=== PATIENT | female | born 1990 | race Caucasian/White ===

== ENCOUNTER → 2019-09-18 14:22 | Outpatient (BNVA) | payer OTHER, SELFPAY | PROVIDERS: Family Provider Family Medicine; Visit Provider Nurse Practitioner Women's Health | DX: Z01.419 Encounter for gynecological examination (general) (routine) without abnormal findings (principal); Z11.3 Encounter for screening for infections with a predominantly sexual mode of transmission; R53.83 Other fatigue; F41.9 Anxiety disorder, unspecified; F32.9 Major depressive disorder, single episode, unspecified | CPT/HCPCS: 84443; 87491; 87591; 87661 ==

== ENCOUNTER → 2020-10-05 09:00 | Outpatient (BNVA) | payer OTHER, SELFPAY | PROVIDERS: Family Provider Family Medicine; Visit Provider Nurse Practitioner Women's Health | DX: Z01.419 Encounter for gynecological examination (general) (routine) without abnormal findings (principal); Z11.3 Encounter for screening for infections with a predominantly sexual mode of transmission | CPT/HCPCS: 87491; 87591; 87661; 88175 ==

== ENCOUNTER → 2020-12-01 12:56 | Outpatient (BNVA) | payer OTHER, SELFPAY | PROVIDERS: Family Provider Family Medicine; Visit Provider Obstetrics & Gynecology | DX: R87.610 Atypical squamous cells of undetermined significance on cytologic smear of cervix (ASC-US) (principal); R87.810 Cervical high risk human papillomavirus (HPV) DNA test positive | CPT/HCPCS: 81025; 88305 ==

== ENCOUNTER → 2021-04-27 16:16 | Outpatient (BNVA) | payer OTHER, SELFPAY | PROVIDERS: Family Provider Family Medicine; Visit Provider Nurse Practitioner Family | DX: Z20.822 Contact with and (suspected) exposure to COVID-19 (principal) | CPT/HCPCS: 87635 ==

== ENCOUNTER → 2022-04-25 15:15 | Outpatient (BNVA) | payer OTHER, SELFPAY | PROVIDERS: Family Provider Family Medicine; PCP Family Medicine; Visit Provider Nurse Practitioner Women's Health | DX: R87.610 Atypical squamous cells of undetermined significance on cytologic smear of cervix (ASC-US) (principal); R87.810 Cervical high risk human papillomavirus (HPV) DNA test positive; N89.8 Other specified noninflammatory disorders of vagina; N76.0 Acute vaginitis; Z01.419 Encounter for gynecological examination (general) (routine) without abnormal findings; B96.89 Other specified bacterial agents as the cause of diseases classified elsewhere; Z30.431 Encounter for routine checking of intrauterine contraceptive device | CPT/HCPCS: 87624 ==

== ENCOUNTER 2022-12-04 08:41 | Outpatient (CLI) | payer OTHER, SELFPAY | END 2022-12-04 08:42 | disposition home or self-care (01) | PROVIDERS: PCP Family Medicine; Visit Provider Family Medicine | DX: Z01.89 Encounter for other specified special examinations (principal) | CPT/HCPCS: 36415 ==

== ENCOUNTER → 2023-08-08 09:13 | Outpatient (BNVA) | payer OTHER, SELFPAY | PROVIDERS: Visit Provider Nurse Practitioner Women's Health | DX: Z12.4 Encounter for screening for malignant neoplasm of cervix (principal); Z01.419 Encounter for gynecological examination (general) (routine) without abnormal findings; R87.610 Atypical squamous cells of undetermined significance on cytologic smear of cervix (ASC-US); R87.810 Cervical high risk human papillomavirus (HPV) DNA test positive | CPT/HCPCS: 87624 ==

== ENCOUNTER 2024-07-16 12:01 | Outpatient (CLI) | payer OTHER, SELFPAY ==
[2024-07-17 21:55] LABS: Chlamydia Trachomatis RNA TMA NOT DETECTED (NOT DETECTED); Neisseria Gonorrhoeae RNA, TMA NOT DETECTED (NOT DETECTED)
== END 2024-07-16 12:02 | disposition home or self-care (01) ==
LOC: LAB 12:04
DX: Z11.8 Encounter for screening for other infectious and parasitic diseases (principal)
CPT/HCPCS: 87491; 87591

== ENCOUNTER 2024-10-26 10:42 | Outpatient (CLI) | payer OTHER, SELFPAY ==
[2024-10-27 15:34] LABS: Cytomegalovirus Antibody (IGM) <30.00 AU/mL
== END 2024-10-26 10:43 | disposition home or self-care (01) ==
LOC: LAB 10:43
PROVIDERS: PCP Family Medicine; Visit Provider Student in an Organized Health Care Education/Training Program
DX: R76.8 Other specified abnormal immunological findings in serum (principal)
CPT/HCPCS: 36415

== ENCOUNTER 2024-11-17 08:53 | Outpatient (CLI) | payer OTHER, SELFPAY ==
[2024-11-17 09:59] LABS: Estradiol 274.3 pg/mL; HCG Quantitative < 1.00 mIU/mL; Progesterone 0.058 ng/mL
== END 2024-11-17 08:54 | disposition home or self-care (01) ==
PROVIDERS: PCP Family Medicine; Visit Provider Obstetrics & Gynecology Reproductive Endocrinology
DX: Z01.812 Encounter for preprocedural laboratory examination (principal)
CPT/HCPCS: 36415; 82670; 83002; 84144; 84702

== ENCOUNTER 2024-11-17 12:30 | Outpatient (CLI) | payer SELFPAY ==
--- NOTE | 2024-11-17 12:50 | USR_ITS ---
PROCEDURE INFORMATION: Exam: US Pelvis, Transvaginal, Non-Obstetric Exam date and time: 11/17/2024 1:12 PM Age: 34 years old Clinical indication: Screening exam; Follicle count and endo thickness TECHNIQUE: Imaging protocol: Real-time transvaginal pelvic (non-obstetric) ultrasound with image documentation. Transvaginal imaging was used for better evaluation of the endometrium, adnexa, and/or cervix. COMPARISON: No relevant prior studies available. FINDINGS: Uterus: Uterus measures 9.9 x 5.2 x 6.0 cm with endometrial thickness of 1.4 cm. Right ovary/adnexa: Right ovary measures 3.0 x 1.5 x 2.2 cm with normal vascularity. At least 9 follicles are visualized Left ovary/adnexa: Left ovary measures 3.9 x 2.6 x 2.8 cm with normal vascularity. Fourteen follicles are visualized. Largest visualized follicle measures 1.8 cm. Intraperitoneal space: No free fluid in the pelvis. US/US transvaginal [id number] IMPRESSION: Bilateral ovarian follicles numbering up to 9 on the right and 14 on the left. Endometrial thickness 1.4 cm.
== END 2024-11-17 12:31 | disposition home or self-care (01) ==
LOC: RAD 12:37
PROVIDERS: PCP Family Medicine; Visit Provider Obstetrics & Gynecology Reproductive Endocrinology
DX: Z01.812 Encounter for preprocedural laboratory examination (principal)
CPT/HCPCS: 76830

== ENCOUNTER 2024-11-18 08:18 | Outpatient (CLI) | payer SELFPAY ==
[2024-11-18 09:36] LABS: Estradiol 430.2 pg/mL
== END 2024-11-18 08:19 | disposition home or self-care (01) ==
PROVIDERS: PCP Family Medicine; Visit Provider Family Medicine
DX: Z01.812 Encounter for preprocedural laboratory examination (principal)
CPT/HCPCS: 36415; 82670; 83002; 84144

== ENCOUNTER 2024-11-19 08:06 | Outpatient (CLI) | payer SELFPAY ==
[2024-11-19 09:45] LABS: Estradiol 323.1 pg/mL; Luteinizing Hormone 58.7 mIU/mL (0.5-41.7); Progesterone 0.839 ng/mL
== END 2024-11-19 08:07 | disposition home or self-care (01) ==
LOC: LAB 08:07
PROVIDERS: PCP Family Medicine; Visit Provider Obstetrics & Gynecology Reproductive Endocrinology
DX: Z01.812 Encounter for preprocedural laboratory examination (principal)
CPT/HCPCS: 82670; 83002; 84144

== ENCOUNTER 2024-12-03 08:09 | Outpatient (CLI) | payer SELFPAY ==
[2024-12-03 09:17] LABS: Estradiol 44.3 pg/mL; HCG Quantitative < 1.00 mIU/mL; Progesterone 17.99 ng/mL
== END 2024-12-03 08:10 | disposition home or self-care (01) ==
LOC: LAB 08:10
PROVIDERS: PCP Family Medicine; Visit Provider Obstetrics & Gynecology Reproductive Endocrinology
DX: Z01.812 Encounter for preprocedural laboratory examination (principal)
CPT/HCPCS: 36415; 82670; 84144; 84702

== ENCOUNTER 2024-12-22 08:47 | Outpatient (CLI) | payer SELFPAY ==
[2024-12-22 10:12] LABS: Estradiol 124.9 pg/mL; Follicle Stimulating Hormone 6.5 mIU/mL; HCG Quantitative < 1.00 mIU/mL; Luteinizing Hormone 11.5 mIU/mL (0.5-41.7)
== END 2024-12-22 08:48 | disposition home or self-care (01) ==
PROVIDERS: PCP Family Medicine
DX: Z01.812 Encounter for preprocedural laboratory examination (principal)
CPT/HCPCS: 36415; 82670; 83001; 83002; 84144; 84702

== ENCOUNTER 2025-01-06 09:40 | Outpatient (CLI) | payer SELFPAY ==
[2025-01-06 11:03] LABS: HCG Quantitative < 1.00 mIU/mL; Progesterone 0.105 ng/mL
== END 2025-01-06 09:41 | disposition home or self-care (01) ==
PROVIDERS: PCP Family Medicine; Visit Provider Obstetrics & Gynecology Reproductive Endocrinology
DX: Z01.812 Encounter for preprocedural laboratory examination (principal)
CPT/HCPCS: 36415; 82670; 84144; 84702

== ENCOUNTER 2025-01-06 16:03 | Outpatient (CLI) | payer SELFPAY ==
--- NOTE | 2025-01-06 16:08 | USR_ITS ---
PROCEDURE INFORMATION: Exam: US Pelvis, Transvaginal, Non-Obstetric Exam date and time: 01/06/2025 4:12 PM Age: 34 years old Clinical indication: Screening exam; Follicles and endo TECHNIQUE: Imaging protocol: Real-time transvaginal pelvic (non-obstetric) ultrasound with image documentation. Transvaginal imaging was used for better evaluation of the endometrium, adnexa, and/or cervix. COMPARISON: US transvaginal [id number] 11/17/2024 1:12 PM FINDINGS: Uterus: The uterus measures 10.4 x 4.9 x 6.3 cm. Small exophytic uterine fibroid measuring up to 9 mm. The endometrium measures 8 mm. Trace endometrial fluid is noted. Right ovary/adnexa: The right ovary measures 3.4 x 2.7 x 2.4 cm. Normal arterial and venous waveforms are visualized in the right ovary. The right ovary contains approximately 10 follicles per pension administrator report, 8 are documented. Left ovary/adnexa: The left ovary measures 2.7 x 1.7 x 2.0 cm. Normal arterial and venous waveforms are visualized in the right ovary. The left ovary contains approximately 10-15 follicles per pension administrator report, 3 are documented. Urinary bladder: Urinary bladder is limited. Intraperitoneal space: No free fluid. US/US transvaginal [id number] IMPRESSION: Bilateral ovarian follicles described above. Endometrial thickness measures 8 mm.
== END 2025-01-06 16:04 | disposition home or self-care (01) ==
LOC: RAD 16:04
PROVIDERS: PCP Family Medicine; Visit Provider Obstetrics & Gynecology Reproductive Endocrinology
DX: Z01.812 Encounter for preprocedural laboratory examination (principal); D25.9 Leiomyoma of uterus, unspecified
CPT/HCPCS: 76830

== ENCOUNTER 2025-01-14 10:26 | Outpatient (CLI) | payer SELFPAY ==
[2025-01-14 11:40] LABS: Estradiol 142.4 pg/mL
--- NOTE | 2025-01-14 15:23 | US_ITS ---
WS: [id number] US transvaginal [id number] HISTORY: MEASURE THICKNESS OF ENDOMETRIAL LINING/FOLLICLES COMPARISON: 01/06/2025 Uterus: 11.3 cm x 5.4 cm x 5.1 cm. Uterus is slightly enlarged and anteverted. There is an exophytic fibroid which is hypoechoic from the anterior superior uterus measuring 0.7 x 0.6 x 0.7 cm. Very small nabothian cyst. Endometrium: 1.4 cm. Trilaminar appearance of the endometrium. Endometrium is thickened. Prior measurement on 01/06/2025 was 0.8 cm. Right ovary: 2.2 cm x 1.5 cm x 1.9 cm. Normal size ovary. There are a few scattered small peripheral follicles. Number of follicles on the RIGHT ovary estimated at 15. The largest is subcentimeter measuring approximately 6 mm. Left ovary: 3.5 cm x 2.3 cm x 1.2 cm. Normal size ovary with multiple small follicles. Number of follicles is estimated near 20 but these follicles are very small with the largest estimated near 4 mm. No free fluid in the cul-de-sac. US/US transvaginal [id number] IMPRESSION: 1. Endometrium; 1.4 cm. Trilaminar appearance. Endometrium is increased in jessica meter from 0.8 cm on 01/06/2025. 2. There are multiple bilateral but very small ovarian follicles. Follicles ar e all less than a centimeter. 3. Small exophytic uterine fibroid, 0.7 x 0.6 x 0.7 cm.
== END 2025-01-14 10:27 | disposition home or self-care (01) ==
PROVIDERS: PCP Family Medicine; Visit Provider Obstetrics & Gynecology Reproductive Endocrinology
DX: Z01.812 Encounter for preprocedural laboratory examination (principal); D25.9 Leiomyoma of uterus, unspecified; N88.8 Other specified noninflammatory disorders of cervix uteri
CPT/HCPCS: 36415; 76830; 82670

== ENCOUNTER 2025-01-21 10:59 | Outpatient (CLI) | payer SELFPAY ==
--- NOTE | 2025-01-21 11:11 | USR_ITS ---
PROCEDURE INFORMATION: Exam: US Pelvis, Transvaginal, Non-Obstetric Exam date and time: 01/21/2025 11:52 AM Age: 34 years old Clinical indication: Screening exam; Measure thickness of endometrial lining TECHNIQUE: Imaging protocol: Real-time transvaginal pelvic (non-obstetric) ultrasound with image documentation. Transvaginal imaging was used for better evaluation of the endometrium, adnexa, and/or cervix. COMPARISON: US transvaginal [id number] 01/14/2025 3:39 PM FINDINGS: Uterus: Uterus is normal. Uterus measures 7.9 x 4.6 x 6.3 cm. Endometrial stripe measures 1.5 cm in thickness. Right ovary/adnexa: Normal. No mass. Normal ovarian blood flow on color Doppler. Right ovary measures 3.2 x 2.6 x 2.8 cm (12.2 mL). Tiny follicles measuring up to 0.6 cm. Left ovary/adnexa: Normal. No mass. Normal ovarian blood flow on color Doppler. Left ovary measures 3.0 x 2.2 x 1.8 cm (6.2 mL). Tiny follicles measuring up to 0.5 cm. Urinary bladder: Urinary bladder is limited. Intraperitoneal space: No free fluid. US/US transvaginal [id number] IMPRESSION: 1. Endometrial stripe measures 1.5 cm. 2. Multiple small bilateral subcentimeter follicles.
[2025-01-21 12:13] LABS: Estradiol 137.9 pg/mL; HCG Quantitative < 1.00 mIU/mL
== END 2025-01-21 11:00 | disposition home or self-care (01) ==
PROVIDERS: PCP Family Medicine; Visit Provider Obstetrics & Gynecology Reproductive Endocrinology
DX: Z01.812 Encounter for preprocedural laboratory examination (principal)
CPT/HCPCS: 36415; 76830; 82670; 84144; 84702

== ENCOUNTER 2025-01-26 11:32 | Outpatient (CLI) | payer SELFPAY ==
[2025-01-26 13:02] LABS: Progesterone 17.63 ng/mL
== END 2025-01-26 11:33 | disposition home or self-care (01) ==
PROVIDERS: PCP Family Medicine
DX: Z01.812 Encounter for preprocedural laboratory examination (principal)
CPT/HCPCS: 82670; 84144

== ENCOUNTER 2025-02-01 12:03 | Outpatient (CLI) | payer SELFPAY ==
[2025-02-01 13:19] LABS: Estradiol 718.5 pg/mL; Progesterone 41.34 ng/mL
== END 2025-02-01 12:04 | disposition home or self-care (01) ==
PROVIDERS: PCP Family Medicine; Visit Provider Obstetrics & Gynecology Reproductive Endocrinology
DX: Z01.812 Encounter for preprocedural laboratory examination (principal)
CPT/HCPCS: 36415; 82670; 84144

== ENCOUNTER 2025-02-08 09:36 | Outpatient (CLI) | payer SELFPAY ==
[2025-02-08 10:44] LABS: Estradiol 307.2 pg/mL; Progesterone 38.11 ng/mL
[2025-02-08 11:19] LABS: HCG Quantitative < 1.00 mIU/mL
== END 2025-02-08 09:37 | disposition home or self-care (01) ==
PROVIDERS: PCP Family Medicine; Visit Provider Obstetrics & Gynecology Reproductive Endocrinology
DX: Z01.812 Encounter for preprocedural laboratory examination (principal)
CPT/HCPCS: 36415; 82670; 84144; 84702

== ENCOUNTER 2025-02-25 08:02 | Outpatient (CLI) | payer SELFPAY | END 2025-02-25 08:03 | disposition home or self-care (01) | LOC: LAB 08:03 | PROVIDERS: PCP Family Medicine; Visit Provider Obstetrics & Gynecology Reproductive Endocrinology | DX: Z01.812 Encounter for preprocedural laboratory examination (principal) | CPT/HCPCS: 36415; 82670; 83002; 84144; 84702 ==

== ENCOUNTER 2025-03-12 08:25 | Outpatient (CLI) | payer SELFPAY ==
[2025-03-12 09:51] LABS: Follicle Stimulating Hormone 3.9 mIU/mL
== END 2025-03-12 08:26 | disposition home or self-care (01) ==
PROVIDERS: PCP Family Medicine; Visit Provider Obstetrics & Gynecology Reproductive Endocrinology
DX: Z01.812 Encounter for preprocedural laboratory examination (principal)
CPT/HCPCS: 36415; 82670; 83001; 83002; 84144; 84702

== ENCOUNTER 2025-03-12 16:21 | Outpatient (CLI) | payer SELFPAY ==
--- NOTE | 2025-03-12 16:15 | USR_ITS ---
PROCEDURE INFORMATION: Exam: US Pelvis, Transvaginal, Non-Obstetric Exam date and time: 03/12/2025 4:59 PM Age: 34 years old Clinical indication: Screening exam; Follicle count, endo thickness; Additional info: Antrl follicles in both ovaries; Measurement of the thicknes TECHNIQUE: Imaging protocol: Real-time transvaginal pelvic (non-obstetric) ultrasound with image documentation. Transvaginal imaging was used for better evaluation of the endometrium, adnexa, and/or cervix. COMPARISON: US transvaginal [id number] 01/21/2025 11:52 AM FINDINGS: Uterus: Uterus is measures 9.9 x 5.5 x 6.6 cm. Small subserosal hypoechoic focus at the right anterior uterine body measuring 0.7 x 1.0 x 0.7 cm compatible with fibroid. Endometrial stripe measures 1.3 cm. Right ovary/adnexa: Ovary measures 3.2 x 3.4 x 2.3 cm for a calculated volume of 13.7 cc and shows 1.7 x 1.6 x 2.0 cm anechoic cystic structure with possible single thin septation and surrounding vascularity. Multiple subcentimeter follicles. No solid mass. Normal ovarian blood flow on color Doppler. Left ovary/adnexa: Ovary measures 3.5 x 2.5 x 1.8 cm for a calculated volume of 8.2 cc and shows subtle subcentimeter follicles. No mass. Normal ovarian blood flow on color Doppler. Urinary bladder: Urinary bladder is limited. Intraperitoneal space: No free fluid. US/US transvaginal [id number] IMPRESSION: 1. Endometrial stripe measures 1.3 cm. 2. Developed 2 cm right ovarian cystic structure suggestive of corpus luteum, possibly dominant follicle. Multiple additional bilateral subcentimeter ovarian follicles, approximately 7 on the right and 6 on the left per sizer machine report. 3. Small uterine fibroid.
== END 2025-03-12 16:22 | disposition home or self-care (01) ==
LOC: RAD 16:24
PROVIDERS: PCP Family Medicine; Visit Provider Obstetrics & Gynecology Reproductive Endocrinology
DX: Z01.812 Encounter for preprocedural laboratory examination (principal); N83.02 Follicular cyst of left ovary; N83.01 Follicular cyst of right ovary; N83.291 Other ovarian cyst, right side; D25.9 Leiomyoma of uterus, unspecified
CPT/HCPCS: 76830

== ENCOUNTER 2025-03-18 13:47 | Outpatient (CLI) | payer SELFPAY ==
--- NOTE | 2025-03-18 13:58 | US_ITS ---
WS: [id number] US transvaginal [id number] HISTORY: FOLLICLE COUNT AND ENDO THICKNESS COMPARISON: None available. Uterus: 11.0 cm x 6.7 cm x 6.0 cm. Normal size anteverted uterus. Reidentified is a small exophytic fibroid towards the superior anterior uterine fundus measuring 8 x 7 mm. Endometrium: 1.5 cm. Normal. Right ovary: 3.8 cm x 3.0 cm x 3.1 cm. Normal size ovary. Thick-walled corpus luteum measures 1.2 x 1.3 x 1.2 cm. Corpus luteum has decreased in size since the prior exam of 03/12/2025. Tiny follicles. The number estimated at 10. Left ovary: 2.8 cm x 1.5 cm x 3.6 cm. Normal size and vascularity, no cystic or solid masses. Small follicles. The number estimated at 12. Largest follicle 0.4 cm. No free fluid in the cul-de-sac. US/US transvaginal [id number] IMPRESSION: 1. Endometrial thickness 1.5 cm. 2. Decreasing size of the thick-walled corpus luteum cyst within the RIGHT ova ry now measuring 1.2 x 1.3 x 1.2 cm. 3. Very tiny bilateral ovarian follicles. 4. RIGHT ovarian follicle number estimated at 10. 5. LEFT ovarian follicle number estimated at 12.
== END 2025-03-18 13:48 | disposition home or self-care (01) ==
PROVIDERS: PCP Family Medicine; Visit Provider Obstetrics & Gynecology Reproductive Endocrinology
DX: Z01.812 Encounter for preprocedural laboratory examination (principal); N83.11 Corpus luteum cyst of right ovary
CPT/HCPCS: 36415; 76830; 82670

== ENCOUNTER 2025-03-25 08:04 | Outpatient (CLI) | payer SELFPAY ==
--- NOTE | 2025-03-25 08:21 | US_ITS ---
WS: [id number] US transvaginal [id number] HISTORY: MEASUREMENT OF THE THICKNESS OF ENDOMETRIAL LINING COMPARISON: 03/18/2025 Uterus: 10.5 cm x 7.5 cm x 5.7 cm. Normal size anteverted uterus. Reidentified is a subserosal and pedunculated fibroid from the anterior superior uterus measuring 0.8 x 0.9 x 0.6 cm. Endometrium: 1.9 cm. Trilaminar appearance of the endometrium. Right ovary: 2.6 cm x 1.9 cm x 2.5 cm. There is several very tiny follicles within the RIGHT ovary. Number is difficult to estimate due to their small size but approximately 10. The largest follicle is 4 mm. Left ovary: 3.3 cm x 2.3 cm x 2.1 cm. Numerous small follicles. Due to their small size and number is difficult to estimate but approximately 10 follicles. The largest measures 5 mm. No free fluid in the cul-de-sac. US/US transvaginal [id number] IMPRESSION: 1. Endometrium 1.9 cm. Endometrium measures 1.5 cm on 03/18/2025. 2. There are numerous but very tiny bilateral ovarian follicles. Number of fol licles is difficult to estimate due to the very small size. Approximately 10 fo llicles in each ovary.
== END 2025-03-25 08:05 | disposition home or self-care (01) ==
PROVIDERS: PCP Family Medicine; Visit Provider Obstetrics & Gynecology Reproductive Endocrinology
DX: Z01.812 Encounter for preprocedural laboratory examination (principal)
CPT/HCPCS: 36415; 76830; 82670; 84144; 84702

== ENCOUNTER 2025-03-30 10:01 | Outpatient (CLI) | payer SELFPAY | END 2025-03-30 10:02 | disposition home or self-care (01) | PROVIDERS: PCP Family Medicine | DX: Z01.812 Encounter for preprocedural laboratory examination (principal) | CPT/HCPCS: 36415; 82670; 84144 ==

== ENCOUNTER 2025-04-12 08:21 | Outpatient (CLI) | payer SELFPAY | END 2025-04-12 08:22 | disposition home or self-care (01) | PROVIDERS: PCP Family Medicine; Visit Provider Obstetrics & Gynecology Reproductive Endocrinology | DX: Z01.812 Encounter for preprocedural laboratory examination (principal) | CPT/HCPCS: 36415; 82670; 84144; 84702 ==

== ENCOUNTER 2025-04-14 08:16 | Outpatient (CLI) | payer SELFPAY | END 2025-04-14 08:17 | disposition home or self-care (01) | PROVIDERS: PCP Family Medicine; Visit Provider Obstetrics & Gynecology Reproductive Endocrinology | DX: Z01.812 Encounter for preprocedural laboratory examination (principal) | CPT/HCPCS: 36415; 82670; 84144; 84702 ==

== ENCOUNTER 2025-04-19 07:52 | Outpatient (CLI) | payer SELFPAY | END 2025-04-19 07:53 | disposition home or self-care (01) | PROVIDERS: PCP Family Medicine; Visit Provider Obstetrics & Gynecology Reproductive Endocrinology | DX: Z01.812 Encounter for preprocedural laboratory examination (principal) | CPT/HCPCS: 36415; 82670; 84144; 84702 ==

== ENCOUNTER 2025-04-22 11:12 | Outpatient (CLI) | payer SELFPAY ==
--- NOTE | 2025-04-22 11:17 | US_ITS ---
WS: [id number] EARLY OBSTETRICAL ULTRASOUND (<14 WEEKS). 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 Cardiac activity at 110 BPM. [place]-rump length measures 0.8 cm which corresponds to a gestation of 6w5d. Very poorly visualized crown-rump length. Poorly visualized yolk sac and amnion demonstrated. No subchorionic hemorrhage. No free fluid. Normal size ovaries with no mass. US/US OB <= 14 weeks fetus [id number] IMPRESSION: 1. Single intrauterine gestation of 6w5d with an EDC of 12/11/2025. The crown- rump length is very poorly visualized. This may be due to the presence of a dis tended urinary bladder on transvaginal imaging. Recommend repeat transvaginal o bstetrical ultrasound for more accurate imaging and visualization of the crown- rump length. Urinary bladder needs to be completely emptied prior to the repeat ultrasound. 2. cardiac activity is normal at 110 bpm.
== END 2025-04-22 11:13 | disposition home or self-care (01) ==
LOC: RAD 11:13
PROVIDERS: PCP Family Medicine; Visit Provider Obstetrics & Gynecology Reproductive Endocrinology
DX: Z34.91 Encounter for supervision of normal pregnancy, unspecified, first trimester (principal)
CPT/HCPCS: 76801

== ENCOUNTER 2025-04-29 13:37 | Outpatient (CLI) | payer SELFPAY ==
--- NOTE | 2025-04-29 13:53 | US_ITS ---
WS: [id number] EARLY OBSTETRICAL ULTRASOUND (<14 WEEKS). HISTORY: ASSESS INTRAUTERINE COMPARISON: 04/22/2025 Transabdominal and transvaginal imaging submitted. Single intrauterine gestational sac is identified. Cardiac activity at 135 BPM. [place]-rump length measures 0.9 cm which corresponds to a gestation of 6w6d. Normal-appearing yolk sac and amnion demonstrated. No subchorionic hemorrhage. No free fluid. Neither ovary identified. Incidental note is made of a subserosal fibroid along the anterior myometrium measuring 1.1 x 1.1 x 1.2 cm. US/US OB <=14 wk fetus w transvag IMPRESSION: 1. Single intrauterine gestation of 6w6d with an EDC of 12/17/2025. Image qual ity is much improved on today's examination as compared to the prior study from 04/22/2025. The gestational age and estimated date of delivery has changed base d upon this second early first trimester obstetrical ultrasound. The estimated gestational age on today's study does appear to be more accurate based on neville r visualization of the crown-rump length. 2. Normal cardiac activity. 3. Subserosal fibroid.
== END 2025-04-29 13:38 | disposition home or self-care (01) ==
PROVIDERS: PCP Family Medicine; Visit Provider Obstetrics & Gynecology Reproductive Endocrinology
DX: Z34.91 Encounter for supervision of normal pregnancy, unspecified, first trimester (principal)
CPT/HCPCS: 76801; 76817; 82670; 84144

== ENCOUNTER 2025-05-06 10:25 | Outpatient (CLI) | payer SELFPAY | END 2025-05-06 10:26 | disposition home or self-care (01) | PROVIDERS: PCP Family Medicine; Visit Provider Obstetrics & Gynecology Reproductive Endocrinology | DX: Z01.812 Encounter for preprocedural laboratory examination (principal) | CPT/HCPCS: 36415; 82670; 84144 ==

== ENCOUNTER 2025-05-12 08:41 | Outpatient (CLI) | payer SELFPAY | END 2025-05-12 08:42 | disposition home or self-care (01) | PROVIDERS: PCP Family Medicine; Visit Provider Obstetrics & Gynecology Reproductive Endocrinology | DX: Z01.812 Encounter for preprocedural laboratory examination (principal) | CPT/HCPCS: 36415; 82670; 84144 ==

== ENCOUNTER 2025-05-20 07:32 | Outpatient (CLI) | payer SELFPAY | END 2025-05-20 07:33 | disposition home or self-care (01) | PROVIDERS: PCP Family Medicine; Visit Provider Obstetrics & Gynecology Reproductive Endocrinology | DX: Z01.812 Encounter for preprocedural laboratory examination (principal) | CPT/HCPCS: 36415; 82670; 84144 ==

== ENCOUNTER 2025-05-26 10:48 | Outpatient (CLI) | payer SELFPAY | END 2025-05-26 10:49 | disposition home or self-care (01) | PROVIDERS: PCP Family Medicine; Visit Provider Obstetrics & Gynecology Reproductive Endocrinology | DX: Z01.812 Encounter for preprocedural laboratory examination (principal) | CPT/HCPCS: 36415; 82670; 84144 ==

== ENCOUNTER 2025-06-02 11:45 | Outpatient (CLI) | payer SELFPAY | END 2025-06-02 11:46 | disposition home or self-care (01) | PROVIDERS: PCP Family Medicine; Visit Provider Obstetrics & Gynecology Reproductive Endocrinology | DX: N97.8 Female infertility of other origin (principal) | CPT/HCPCS: 36415; 82670; 84144 ==

== ENCOUNTER 2025-08-02 07:34 | Outpatient (CLI) | payer OTHER, SELFPAY ==
--- NOTE | 2025-08-02 07:43 | USR_ITS ---
PROCEDURE INFORMATION: Exam: US After First Trimester, Transabdominal Exam date and time: 08/02/2025 7:56 AM Age: 34 years old Clinical indication: Screening exam; Routine US, uterus; Additional info: 16 weeks gestation/2nd trimester LABS AND CLINICAL REPORTS: Gestational age (Established): 20 w 2 d Estimated due date (Established): 12/18/2025 TECHNIQUE: Imaging protocol: Real-time transabdominal obstetrical ultrasound of the maternal pelvis and a second or third trimester with image documentation. COMPARISON: US OB <=14 wk fetus w transvag 04/29/2025 2:06 PM FINDINGS: Gestation: Single viable IUP heart rate: 132 bpm presentation and position: Cephalic Placenta: Unremarkable. No subchorionic bleed. Placenta is posterior. Amniotic fluid (Qualitative): Amniotic fluid is normal for gestational age. Amniotic fluid index: Within normal limits ANATOMY: midline falx: Normal cerebellum: Normal lateral ventricles: Normal cisterna magna: Normal choroid plexus: Normal face: Upper lip is normal. Profile is obscured. heart four-chamber view, heart size and position: Normal heart right ventricular outflow tract: Normal heart left ventricular outflow tract: Normal kidneys: Normal stomach: Normal urinary bladder: Normal spine: Normal Umbilical cord and insertion: Unremarkable. upper limbs: Normal lower limbs: Normal external genitalia: Normal BIOMETRY: Gestational age (AUA): 20 weeks 2 days Estimated due date (AUA): 12/18/2025 Estimated weight: 347.61 g. EFW by AC, BPD, FL, HC, [place] 1985 48th percentile Biparietal diameter (BPD): 4.53 cm. EGA (BPD) is 19 w 5 d. 25.5 % percentile Head circumference (HC): 17.66 cm. EGA (HC) is 20 w 1 d. 35.2 % percentile Abdominal circumference (AC): 14.59 cm. EGA (AC) is 19 w 6 d. 31 % percentile Femur length (FL): 3.48 cm. EGA (FL) is 21 w 0 d. 66.4 % percentile HC/AC: 1.21. (Normal range: 1.07 - 1.25) FL/HC: 19.71. (Normal range: 16.54 - 19.94) FL/BPD: 76.82 FL/AC: 23.85 MATERNAL: Uterus: Unremarkable. Cervix: Unremarkable. Right ovary/adnexa: Obscured by lack of adequate acoustic window. Left ovary/adnexa: Obscured by lack of adequate acoustic window. Intraperitoneal space: No intraperitoneal free fluid. US/US OB >= 14 weeks fetus [id number] IMPRESSION: Unremarkable viable IUP at 20 weeks 2 days. anatomy exam is limited by poor views of profile.
== END 2025-08-02 07:35 | disposition home or self-care (01) ==
LOC: RAD 07:37
PROVIDERS: PCP Family Medicine; Visit Provider Family Medicine
DX: Z34.92 Encounter for supervision of normal pregnancy, unspecified, second trimester (principal); Z3A.16 16 weeks gestation of pregnancy
CPT/HCPCS: 76805